=== PATIENT | female | born 1990 | race Caucasian/White ===

== ENCOUNTER → 2021-09-29 | Day surgery (SDC) | payer OTHER ==
[~2021-09-29] VITALS: Ht 165.1 cm; Wt 136.1 kg
[~2021-09-29] MED LIST: ACETAMINOPHEN500 M1 PO; ASPIRIN EC81 MG PO; COLACE100 MG PO; FOLIC ACID1 MG PO; HYDROXYZINE 10M10 MG PO; METFORMIN HCL500 MG PO; METRONIDAZOLE45 GM TOP; MOTRIN600 MG PO; NORCO 5-325 TA1 EACH PO; OXY-IR 5MG5 MG PO; PRENATAL FORMU1 EACH PO; PROTONIX20 MG PO; VITAMIN B COMP1 EACH PO; ZOLOFT100 MG PO
[2021-09-29 10:29] LABS: HCG (URINE) SCREEN NEGATIVE (NEGATIVE)
[2021-09-29 11:27] LABS: ALBUMIN 3.5 g/dL (3.4-5.0); BILIRUBIN - TOTAL 0.5 mg/dL (0.2-1.0); BUN/CREAT RATIO (CALC) 14.3 RATIO; CREATININE 0.49 mg/dL (0.51-0.95); GLOBULIN (CALCULATION) 4.1 g/dL; POTASSIUM 3.9 mmol/L (3.5-5.1); TOTAL PROTEIN 7.6 g/dL (6.4-8.2)
== END | disposition home or self-care (01) ==
LOC: FAS 09:58
PROVIDERS: Student in an Organized Health Care Education/Training Program
DX: K80.10 Calculus of gallbladder with chronic cholecystitis without obstruction (principal); K43.0 Incisional hernia with obstruction, without gangrene; Z88.8 Allergy status to other drugs, medicaments and biological substances; Z91.041 Radiographic dye allergy status; Z91.013 Allergy to seafood; Z79.82 Long term (current) use of aspirin; Z87.891 Personal history of nicotine dependence
CPT/HCPCS: 36415; 80053; 82150; 83690; 84703; 93005; J0690; J1100; J1170; J1644; J1885; J2250; J2405; J2550; J2704; J3010; J7120